=== PATIENT | female | born 2000 | race African-American/Black ===

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

== ENCOUNTER 2021-09-19 17:51 | Outpatient (CLI) | payer OTHER ==
[2021-09-19 18:20] LABS: PLATELET COUNT 216 K/uL (152-353)
[2021-09-19 18:36] LABS: POTASSIUM 3.4 mmol/L (3.6-5.2)
== END 2021-09-19 19:15 | disposition home or self-care (01) ==
LOC: LABW 17:51
PROVIDERS: ATTEND Nurse Practitioner Family
DX: R07.89 Other chest pain (principal); R00.2 Palpitations; R42 Dizziness and giddiness; N92.0 Excessive and frequent menstruation with regular cycle; N94.6 Dysmenorrhea, unspecified
CPT/HCPCS: 36415; 80048; 81000; 81025; 84439; 85027; 87490; 87590

== ENCOUNTER 2021-09-30 10:03 | Outpatient (CLI) | payer OTHER | END 2021-09-30 19:35 | disposition home or self-care (01) | LOC: US 10:03 | PROVIDERS: ATTEND Nurse Practitioner Family | DX: N94.6 Dysmenorrhea, unspecified (principal); N92.0 Excessive and frequent menstruation with regular cycle; R10.30 Lower abdominal pain, unspecified ==